=== PATIENT | female | born 1990 | race Caucasian/White ===

== ENCOUNTER 2019-04-03 12:58 | Inpatient (IN) | payer OTHER ==
[2019-04-03] VITALS (8 sets, daily range): BP systolic 116–139; BP diastolic 63–80
[~2019-04-03] VITALS: Ht 154.9 cm; Wt 90.6 kg
[2019-04-03] MEDS ORDERED: LACTATED RINGER'S 1000 ML IV STA (13:08)
--- NOTE | 2019-04-03 13:56 | HPEPDOC ---
Obstetrical History & Physical General Date of Admission April 03, 2019 at 12:58 History of Present Illness Ana Luisa is a 28yo with SIUP at 41w0d by lmp c/w 9wk u/s presenting for sc heduled IOL for LTG. No regular/painful ctx, no LOF, no vaginal bleeding. Good movement. Chief Complaint: Induction of labor Information Provided By: Patient Care Care: Good Care Dating Final EDC: March 27, 2019 Final EDC by: LMP, 1st trimester (US) Antepartum Course Diagnos(e)s History of prior section for suspected macrosomia (weight 8lb5oz) and nuchal cord(?)- never labored, Class 1 obesity w/starting BMI 33 and normal glucose testing, CF carrier (FOB negative), depression treated with zoloft that was started in this Height (inches): 61 Pre- weight (lbs.): 175 Admission Weight (lbs.): 198 Change in Weight (lbs.): 23 Past Medical History Past Obstetrical History : Past Obstetrical History: Multigravida (2011 PLTCS scheduled for macrosomia/nuchal cord(?) at 40wk, F 8lb5oz) Past Medical History Medical History Class I obesity, depression on zoloft Surgical History: section Family History Significant Family History: No pertinent family hx Social History Marital Status: Family situation: Spouse/partner home Psychosocial History: Depression * Smoker: non-smoker Alcohol: Denies Drugs: denies Imunizations Tdap status: current Influenza Status: current Physical Examination Physical Examination GENERAL: Alert and oriented times three. ABDOMEN: Gravid and non-tender to touch. FETUS: Is vertex (VTX) by TAUS EXTREMITIES: No edema of BLE Laboratory Data 24H LABS Laboratory Tests 2 04/03/19 13:24: Serology Scanned Report Hepatitis B Testing Pertinent Laboratoy Data Blood Type: O+ RBC Antibody Screen: Negative HIV: Negative Hepatitis B: Negative Hepatitis C: Unknown Rapid Plasma Reagin: Nonreactive Rubella: Immune Varicella: Immune Chlamydia/Gonorrhea: Negative Group B Streptococcus: Negative Cystic Fibrosis: Positive Glucose Tolerance Test: 106 Anatomy Ultrasound Ultrasound Date: Nov 24, 2018 Placenta Location: Posterior Normal Anatomy: Yes Placenta Previa: No Steroid Therapy Steroid Therapy: No Vaginal Examination Dilation: 1cm Effacement: 30% Station: -3 Cervical Consistency: Medium Cervical Position: Posterior Presentation: Cephalic presentation (by TAUS) Assessment Heart Rate (FHR): 130 Variability: Moderate Accelerations: Positive Decelerations: None Tocometer Contractions: No Assessment/Plan Assessment Ana Luisa is a 28yo with SIUP at 41w0d by lmp c/w 9wk u/s presenting for scheduled IOL for LTG. Vitals wnl. Cat I FHRT with no ctx. SCE . Cervical robles bulb placed with 40cc NS without issue. Cephalic by TAUS. GBS negative. PMhx/ course significant for: History of prior section for suspected macrosomia (weight 8lb5oz) and nuchal cord(?)- never labored, Class 1 obesity w/starting BMI 33 and normal glucose testing, CF carrier (FOB negative), depression treated with zoloft that was started in this Plan Admit and orient. 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 Diet: regular for lunch then clear liquids Group B Streptococcus (GBS) negative Labs and intravenous (IV) per unit protocol. Counseled on robles bulb, Pitocin and induction of labor (IOL). Will start pitocin and titrate per protocol up to 6mu until robles bulb falls out, then continue to titrate per protocol Lactated Ringers (LR): Bolus 1000 mL, then at 125 mL/hr. Candidate for epidural in active labor as desired MD Brittany Mike Katrina D MD April 03, 2019 13:39
[2019-04-03] MEDS ORDERED: OXYTOCIN 30 UNITS IN 0.9% NaCl 500ML IV BAG (J2590) As Ordered ONE (14:24)
[2019-04-03] MEDS ORDERED: OXYTOCIN DRIP 30 UNITS in APPROPRIATE DILUENT 1 EA IV SCH (14:30)
[2019-04-03 14:37] LABS: HEMOGLOBIN 11.1 g/dl (12.0-15.5); MEAN CORPUSCULAR HEMOGLOBIN 29.1 pg (27.0-33.0); MEAN CORPUSCULAR HGB CONC 32.6 g/dl (32.0-36.5); MEAN CORPUSCULAR VOLUME 89.2 fl (80.0-96.0); PLATELET COUNT, AUTOMATED 147 10^3/uL (150-450); RED BLOOD COUNT 3.81 10^6/uL (4.00-5.40); WHITE BLOOD COUNT 9.4 10^3/uL (4.0-10.0)
[2019-04-03] MEDS: LR 1,000 ML IV SCH (14:41)
[2019-04-03] MEDS ORDERED: PRENTAB9 PO (14:57)
[2019-04-03] MEDS ORDERED: ZOLO25TA PO (14:57)
[2019-04-03] MEDS ORDERED: PROMETHAZINE INJ 25 MG/ML VIAL (J2550) IV ONE (20:45)
[2019-04-03] MEDS ORDERED: BUTORPHANOL 2 MG/ML INJ (J0595) IV ONE (20:45)
--- NOTE | 2019-04-03 22:20 | IPNPDOC ---
Text Note Date of Service The patient was seen on 04/03/19. NOTE Intrapartum Note Pt is doing well, started to feel more pain with ctx and received a dose of 2mg stadol/12.5mg phenergan IV- now more comfortable. Felipe bulb fell out around 20 :30. Pitocin currently at 10mu. 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 Verenice Soto MD A-FIB/CHADSVASC A-FIB History Current/History of A-Fib/PAF?: No Current Oral Anticoagulant The: No VS,Fishbone, I+O VS, Fishbone, I+O Laboratory Tests 04/03/19 14:13 Red Blood Count 3.81 L, Mean Corpuscular Volume 89.2, Mean Corpuscular Hemoglobin 29.1, Mean Corpuscular Hemoglobin Concent 32.6, Red Cell Distribution Width 15.6 H Vital Signs Date Time Temp Pulse Resp B/P (MAP) Pulse Ox O2 Delivery O2 Flow Rate FiO2 04/03/19 21:09 16 04/03/19 17:45 73 118/75 (89) 04/03/19 17:11 98.2 Verenice Soto MD April 03, 2019 22:20
[2019-04-03] MEDS ORDERED: FENTANYL 2MCG/ML ROPIVACAINE 0.2% IN 0.9% NACL 100ML IVBAG As Ordered ONE (22:56)
[2019-04-03] MEDS ORDERED: diphenhydrAMINE INJ 50MG/ML VIAL (J1200) IV PRN (23:48)
[2019-04-03] MEDS ORDERED: ePHEDrine SULFATE 25 MG/5 ML(5MG/ML) SYRINGE IV PRN (23:48)
[2019-04-03] MEDS ORDERED: NALOXONE INJ 0.4 MG/1 ML VIAL (J2310) IV PRN (23:48)
[2019-04-03] MEDS ORDERED: FENTANYL/ROPIVACAINE/NACL BAG 100 ML EPIDURAL SCH (23:48)
[2019-04-03] MEDS ORDERED: REFRIGERATOR IV KEYS XX PRN (23:48)
[2019-04-03] MEDS ORDERED: LACTATED RINGER'S 1000 ML IV PRN (23:48)
[2019-04-03] MEDS ORDERED: EPIDURAL COMMENT XX SCH (23:48)
[2019-04-03] MEDS ORDERED: EPIDURAL/PCA KEYS XX PRN (23:48)
[2019-04-03] MEDS ORDERED: ONDANSETRON 4MG/2ML VIAL (J2405) IV PRN (23:48)
[2019-04-04] MEDS ORDERED: fentaNYL 100 MCG/2 ML INJECTION (J3010) As Ordered ONE (01:02)
[2019-04-04] MEDS ORDERED: fentaNYL 100 MCG/2 ML INJECTION (J3010) IV ONE (01:15)
[2019-04-04] MEDS: LR 1,000 ML IV SCH (03:53)
[2019-04-04] MEDS ORDERED: METHYLERGONOVINE MALEATE 0.2 MG/ML VIAL (J2210) As Ordered ONE (04:04)
[2019-04-04] MEDS ORDERED: OXYTOCIN DRIP 30 UNITS in APPROPRIATE DILUENT 1 EA IV SCH (04:05)
[2019-04-04] MEDS ORDERED: DIBUCAINE 1% OINTMENT 30GM TOP PRN (04:15)
[2019-04-04] MEDS ORDERED: MEASLES,MUMPS,RUBELLA VACCINE INJ (MMR-II) (90707) SC SCH (04:15)
[2019-04-04] MEDS ORDERED: RHOGAM 300 MCG (1500 IU) INJ (J2790) IM SCH (04:15)
[2019-04-04] MEDS ORDERED: LIDOCAINE 1% MDV 20ML VIAL INFIL ONE (04:15)
[2019-04-04] MEDS ORDERED: ACETAMINOPHEN TAB 650MG DOSE (2X325MG) PO PRN (04:15)
[2019-04-04] MEDS ORDERED: DOCUSATE SODIUM 100 MG CAP PO PRN (04:15)
[2019-04-04] MEDS ORDERED: IBUPROFEN 600 MG TAB PO PRN (04:15)
[2019-04-04] MEDS ORDERED: ACETAMINOPHEN 500 MG TAB PO PRN (04:15)
[2019-04-04] MEDS ORDERED: METHYLERGONOVINE MALEATE 0.2 MG/ML VIAL (J2210) IM ONE (04:15)
--- NOTE | 2019-04-04 04:20 | DNPDOC ---
[facility] Delivery Note Delivery Note DATE OF DELIVERY: 04 Apr 2019 PREDELIVERY DIAGNOSIS: 41w1d IOL for LTG, history of prior section POST DELIVERY DIAGNOSIS: Delivered, successful PROCEDURE: DIRECTOR OF HEAD START: Dr. Verenice Soto MD ANESTHESIA: epidural and 1% lidocaine for repair ESTIMATED BLOOD LOSS: 300 mL. FINDINGS: female , weight pending 2/2 [id number] time as of the writing of this note (see chart), Score 7/8, nuchal cord times 1. DELIVERY SUMMARY: Ana Luisa is a 28yo [id number] s/p uncomplicated at 41w1d after undergoing IOL for LTG, delivering at 03:12 on 04 Apr 2019. She presented 3, had robles cervical bulb placed and pitocin given, eventually received an epidural and progressed to C/C/+1 at which point she began pushing. head delivered OA and restituted YANETH. Right anterior shoulder delivered followed by posterior shoulder and corpus- loose nuchal cord reduced. had spontaneous cry with good tone, placed on maternal abdomen where nose and mouth were suctioned with bulb suction, apgars 7/8. Terminal meconium noted. After approx 2 min, cord was clamped x2 and cut by FOB. Cord blood obtained for MBT O pos. Uterine massage performed, traction on the umbilical cord, placenta delivered spontaneously and intact with 3 vessel centrally inserted cord. IV pitocin was given per protocol, bimanual massage was performed and uterus then firm at u-2cm. Inspection of perineum and vagina revealed bilateral labial lacerations and 1mll repaired with 3-0 vicryl in routine fashion, after anesthetizing with 1% lidocaine, with complete hemostasis and good cosmesis. All counts correct x2. Total hemostasis assured. A dose of 0.2mg IM methergine was given for prophylaxis against further bleeding. Mom and infant were doing well when I left the room. MD Brittany Mike Katrina D MD April 04, 2019 04:20
[2019-04-04 06:05] VITALS: BP 103/57
[2019-04-04] MEDS: IBUPROFEN 800 MG TAB PO PRN (06:38)
[2019-04-04] MEDS: PRENATAL VITAMINS CHEWABLE TABLET PO SCH (08:30)
[2019-04-04 18:00] VITALS: BP 91/54
[2019-04-04] MEDS ORDERED: SERTRALINE HCL 25 MG TABLET PO SCH (21:00)
[2019-04-05] MEDS: IBUPROFEN 800 MG TAB PO PRN (04:58)
[2019-04-05 05:59] VITALS: BP 110/65
[2019-04-05] MEDS: PRENATAL VITAMINS CHEWABLE TABLET PO SCH (09:03)
--- NOTE | 2019-04-05 09:37 | DS.PDOC ---
Discharge Summary General Date of Admission April 03, 2019 at 12:58 Date of Discharge [id number] Discharge Summary ADMITTING DIAGNOSES: Induction of labor; postdates DISCHARGE DIAGNOSES: Same, HOSPITAL COURSE: Admitted and induction/delivery uncomplicated, successful . course uncomplicated. DISCHARGE MEDICATIONS: Motrin, Lanolin DISCHARGE INSTRUCTIONS: Nothing in the vagina for 6 weeks. F/U in OBGYN clinic in 6-8 weeks. Sessions Vital Signs/I&Os Vital Signs Date Time Temp Pulse Resp B/P (MAP) Pulse Ox O2 Delivery O2 Flow Rate FiO2 04/05/19 05:59 97.8 70 16 110/65 (80) I&O- Last 24 Hours up to 6 AM 04/05/19 06:00 Output Total 400 ml Balance -400 ml Discharge Medications Scheduled No.137/Iron/Folic Acd ( Vitamin Tablet) 1 Each Tablet, 1 TAB PO DAILY, (Reported) Sertraline Hcl (Zoloft) 25 Mg Tablet, 25 MG PO QHS, (Reported) Allergies Coded Allergies: No Known Allergies (Unverified , 04/03/19) SESSIONSBORIS MD April 05, 2019 09:37
--- NOTE | 2019-04-05 09:38 | IPNPDOC ---
Text Note Date of Service The patient was seen on 04/05/19. NOTE PPD1 States feeling well, pain controlled with prescribed meds. Baby bonding and feeding well. No heavy VB. Lochia slowing. Ambulatory. Tolerating PO without issues. Voiding spont. No CP/LP/SOB. VSSAF NAD A&O LE no C/C/E Ut at U-2, firm a/p: Doing well. Cont routine care. D/C today, boarding if baby stays Sessions A-FIB/NATALIE A-FIB History Current/History of A-Fib/PAF?: No VS,Fishbone, I+O VS, Fishbone, I+O Vital Signs Date Time Temp Pulse Resp B/P (MAP) Pulse Ox O2 Delivery O2 Flow Rate FiO2 04/05/19 05:59 97.8 70 16 110/65 (80) I&O- Last 24 Hours up to 6 AM 04/05/19 05:59 Output Total 400 ml Balance -400 ml SESSIONS,BORIS Kearns MD April 05, 2019 09:38
[2019-04-05] MEDS ORDERED: ACET1TAB55 PO (09:41)
[2019-04-05] MEDS ORDERED: IBUP80TA PO (09:41)
== END 2019-04-05 11:45 | disposition home or self-care (01) | DRG 807 ==
LOC: M LDI 12:58 → M OBS 04-04 06:00
PROVIDERS: ADMIT Obstetrics & Gynecology; ATTEND Obstetrics & Gynecology
PROC: 10E0XZZ Delivery of Products of Conception, External Approach (ICD-10-PCS; principal; 2019-04-04)
PROC: 0HQ9XZZ Repair Perineum Skin, External Approach (ICD-10-PCS; 2019-04-04)
DX: O48.0 Post-term pregnancy (principal); Z37.0 Single live birth; P08.21 Post-term newborn; O34.211 Maternal care for low transverse scar from previous cesarean delivery; E66.9 Obesity, unspecified; O99.214 Obesity complicating childbirth; Z68.33 Body mass index [BMI] 33.0-33.9, adult; F32.9 Major depressive disorder, single episode, unspecified; O99.344 Other mental disorders complicating childbirth; O69.82X0 Labor and delivery complicated by other cord entanglement, without compression, not applicable or unspecified; O70.0 First degree perineal laceration during delivery; Z3A.41 41 weeks gestation of pregnancy

== ENCOUNTER → 2023-09-10 | Day surgery (SDC) | payer OTHER ==
[~2023-09-10] VITALS: Ht 154.9 cm; Wt 67.7 kg
[~2023-09-10] MED LIST: ACET1TAB55 PO; ACETAMINOPHEN 1000MG 100ML IV BAG As Ordered ONE; ADDE10CA3 PO; EFFE37.5 PO; HYDROMORPHONE HCL 0.5 MG/ 0.5 ML SYRINGE IV PRN; IBUP80TA PO; KETOROLAC 60MG 2ML VIAL As Ordered ONE; LIDOCAINE 2% 100MG/5ML SDV (FOR ANES.) As Ordered ONE; MIDAZOLAM INJ 2MG/2ML VIAL As Ordered ONE; ONDANSETRON 4MG 2ML VIAL As Ordered ONE; ONDANSETRON 4MG 2ML VIAL IV PRN; PRENTAB9 PO; ROCURONIUM BROMIDE 50MG/5ML VIAL As Ordered ONE; SCOPOLAMINE 1MG TRANSDERMAL PATCH TOP ONE; ZOLO25TA PO; fentaNYL 100 MCG/2 ML INJECTION As Ordered ONE; fentaNYL 100 MCG/2 ML INJECTION IV PRN; oxyCODONE 5MG TAB PO PRN; propofoL 200 MG/20 ML VIAL As Ordered ONE
[2023-09-10 12:46] LABS: HEMATOCRIT 40.1 % (36.0-47.0); HEMOGLOBIN 12.7 g/dl (12.0-15.5)
[2023-09-10 14:52] VITALS: BP 134/77; TEMP 97.8; O2SAT 99
== END | disposition home or self-care (01) ==
LOC: M SDC 11:01
PROVIDERS: ATTEND Obstetrics & Gynecology
DX: Z30.2 Encounter for sterilization (principal); N83.8 Other noninflammatory disorders of ovary, fallopian tube and broad ligament; F90.9 Attention-deficit hyperactivity disorder, unspecified type; F32.A Depression, unspecified; F41.9 Anxiety disorder, unspecified; Z79.899 Other long term (current) drug therapy
CPT/HCPCS: 36415; 58661; 81025; 85014; 85018; 88302; J0131; J0665; J1100; J1170; J1885; J2250; J2405; J3010